=== PATIENT | female | born 1955 | race Caucasian/White ===

== ENCOUNTER 2022-09-12 08:56 | Day surgery (SDC) | payer MEDICARE ==
[2022-09-06 10:32] LABS: Absolute Lymphocytes (CBC) 1.4 K/uL (0.7-4.9); Hematocrit 43.1 % (36.0-45.0); Lymphocytes % 21.9 % (15.3-44.8); MCV 96.6 fL (80-100); MPV 9.4 fL (7.6-11.3); RBC Red Blood Cell Count 4.46 M/uL (3.86-4.86)
[2022-09-06 10:47] LABS: Protime INR 0.98
[2022-09-06 10:48] LABS: Specific Gravity 1.017 (1.005-1.030); Urine Bacteria <20 /HPF (<20); Urine Bilirubin NEGATIVE (Negative); Urine Blood Negative (Negative); Urine Clarity Clear (Clear); Urine Color Light-Yellow (Yellow); Urine Glucose NEGATIVE (Negative); Urine Mucus Slight /HPF (None Seen); Urine Protein NEGATIVE (Negative); Urine RBC None Seen /HPF (None Seen); Urine Urobilinogen Normal (Normal); Urine pH 6.5 (5.0-7.0)
[2022-09-06 10:53] LABS: Potassium 4.1 mEq/L (3.5-5.1)
[2022-09-12] MEDS: CEFAZOLIN SODIUM 2 GM/VIAL ONE ×2 (09:17→11:40)
[2022-09-12] MEDS ORDERED: Ringers Lactate 1,000 ML IV ONE ×3 (09:24→15:03)
[2022-09-12] MEDS ORDERED: SCOPOLAMINE HYDROBROMIDE PATCH TD ONE (09:24)
[2022-09-12] MEDS ORDERED: ROCURONIUM 50 MG/5 ML VIAL IV ONE (10:18)
[2022-09-12] MEDS ORDERED: FENTANYL CITR 250 MCG/5 ML ONE (10:19)
[2022-09-12] MEDS ORDERED: MIDAZOLAM HCL 2 MG/2 ML INJ ONE (10:20)
[2022-09-12] MEDS ORDERED: BUPIVACAINE 0.25% PF 30 ML VIAL ONE (10:54)
[2022-09-12] MEDS ORDERED: CEFAZOLIN SODIUM 1 GM/VIAL ONE ×2 (10:54→14:55)
[2022-09-12] MEDS ORDERED: NA CHLORIDE 0.9% 1,000 ML ONE (10:54)
[2022-09-12] MEDS ORDERED: KETAMINE HCL IN 0.9 % NACL 50 MG/5 ML SYRINGE IV ONE (10:59)
[2022-09-12] MEDS ORDERED: ONDANSETRON 4 MG/2 ML VIAL ONE (11:00)
[2022-09-12] MEDS ORDERED: dexAMETHasone 10 MG/ML VIAL ONE (11:00)
[2022-09-12] MEDS ORDERED: NS 0.9% VIAL 10 ML ONE (12:04)
[2022-09-12] MEDS ORDERED: NS 0.9% VIAL 0 ML ONE (12:04)
[2022-09-12] MEDS: Ringers Lactate 1,000 ML IV ONE ×3 (12:50→14:56)
--- NOTE | 2022-09-12 12:57 | P.OP ---
Preoperative diagnosis: Possible Mucinous Appendiceal Lesion Postoperative diagnosis: Possible Mucinous Appendiceal Lesion Primary procedure: Laparoscopic Appendectomy Anesthesia: GETA Estimated blood loss: <5cc Specimen: Vermiform Appendix Findings: Normal appearing appendix, mucinous lesion adjacent on ovary Complications: None Condition: Good
[2022-09-12] MEDS ORDERED: KETOROLAC 30 MG/ML INJ ONE (14:45)
[2022-09-12] MEDS ORDERED: MORPHINE 10 MG/ML VIAL ONE (15:10)
[2022-09-12] MEDS ORDERED: Mastisol Adhesive Liq ONE (15:24)
[2022-09-12] MEDS ORDERED: HYDROCODONE/APAP 5/325 MG TAB ONE (17:03)
[2022-09-12 18:56] VITALS: BP 115/59; TEMP 98; O2SAT 98
--- NOTE | 2022-09-13 06:54 | OP ---
Date of Procedure: 09/12/2022 Surgeon: Olga Lidia Moe MD Inventory Clerk: Mame Olivo. Preoperative Diagnoses: Incomplete uterovaginal prolapse and complex adnexal mass. Postoperative Diagnoses: Stage III uterovaginal prolapse with defect, posterior enterocel e, and right ovarian cyst. Procedures Performed: 1.Total laparoscopic hysterectomy, bilateral salpingo-oophorectomy. 2.Pelvic washings. 3.Peritoneal implant excision in the posterior cul-de-sac. 4.Bilateral uterosacral ligament suspension colpopexy. 5.Modified Owens's culdoplasty. 6.Cystoscopy. 7.Laparoscopic appendectomy. Specimens: 1.Uterus, bilateral tubes, and ovaries. 2.The ovarian cyst completely intact with the uterus, these were all removed vaginally. 3.Pelvic washings. 4.The posterior cul-de-sac implant that was excised. 5.Appendix. Intraoperative consult with Dr. Amish Cabrera. Please look at his operative note. Estimated Blood Loss: 50. Urine Output: 600. Intake: 2 L. Anesthesia: General endotracheal. Complications: None. Drains: None. Condition: Stable. Findings: 1.Posterior cul-de-sac had an implant that appeared raised and cystic implant was excised completely from the peritoneum and sent for pathology. 2.The cyst was removed intact through the vagina without any rupture. 3.Appendectomy was done due to suspicion of . 4.There were tiny cystic lesions at the left cornual end of the tube. 5.Uterosacral ligament suspension was done with 0 PDS sutures, 1 on each side and culdoplasty was do ne with 2-0 PDS at cul-de-sac. 6.Vaginal cuff closure was with 2-0 V-Loc in 2 layers. [place] was sprayed on the anterior wall disse ction. The bladder was retrograde filled and there was no leak and on cystoscopy, both ureteric orif ices had strong jets of urine. No evidence of any trauma to the bladder. Procedure In Detail: After informed consent was verified, the patient was taken back to the OR. 2 g of Ancef were given. SCDs were placed. Time-out was done. After general anesthesia was given, she was placed in a dorsal lithotomy position. Abdomen, vulva, vagina, and perineum were prepped and dr aped in a sterile fashion with ChloraPrep to the abdomen and Betadine to the bottom. Her daughters were present at the patient's bedside before the patient was brought to the OR, and all the procedures and the options were all reviewed and risks and complications of the procedure and po stop care were all reviewed in detail. The speculum was placed to expose the cervix. The cervix was grasped with 2 Allis clamps and the cer vix was pulled down. Point C was at +2. Medium VCare cup with uterine manipulator was introduced and fixed in place. Waldron was placed into t he bladder. There was strong smelling urine and this was drained and then Waldron catheter was placed and left to drainage. She was then placed in a supine fashion. Infraumbilical incision was made with scalpel using the open laparoscopy technique. Fascia incised t agged with 0 Vicryl sutures. Peritoneum entered sharply. Alissa introduced and site of entry was ch ecked and was unremarkable. Two 5 ports were placed in the right and left lower quadrant under direc t vision. A 10 mm suprapubic port placed. Adhesions of the ascending colon were taken down from the anterior abdominal wall to facilitate a safe port placement as well as safe movement of the instrume nts through this port. The appendix was visualized. Both tubes and pelvic cavity surveyed. No dist ortion in both the ureters and the path. Pictures were taken of the upper upper quadrant, very high. No other abnormalities were seen. The pelvic washings were performed and then the procedure was started. The left round ligament was t aken on top of the LigaSure. Then, the peritoneum opened parallel to the IP ligament to the base of the IP then medially at the broad ligament, opened up and after visualizing the ureter, the IP ligame nt was taken down with the help of the LigaSure and dissection carried through the posterior peritone um to the uterosacral and the remnant of the posterior cup. The broad ligament was completely dissec amish and anterior broad ligament opened up to raise the bladder flap. Vessels taken down with the Lig aSure. On the opposite side, similar dissection was performed to open the broad ligament superior to the round ligament and round ligament taken down posteriorly. The broad ligament incised between th e ureter and the IP. IP was taken down with the help of LigaSure without any problems with the cyst intact. The peritoneum was posteriorly dissected clearly off the sidewall towards the internal os. Once this was reached, anterior plate was then connected to finish the bladder flap and this was caut erized and cut with help of the LigaSure and . After anteriorly, the VCare cup was visualized and the bladder was just inferior to that, a colpotomy was performed in the anterior and posterior aspects of the VCare cup. Then laterally, taken down wi th the help of the LigaSure and a monopolar to complete the colpotomy on both sides. The specimen wa s pulled out through the vagina carefully, additionally holding the cervix and slowly guiding the res t of the specimen through the vaginal canal. Thorough irrigation and suction was performed in the pelvic cavity. Posterior cul-de-sac lesion was identified here and was excised completely. Closure: 2-0 PDS sutures were placed and 2-0 V-Loc continuously running closed the entire cuff until there was excellent support at the closure here. Uterosacral suspension: 3-0 Monocryl suture was used to tag the bowel epiploicae towards the left up per quadrant. The Manuel Neves needle suture was retrieved and held with a hemostat. 3-0 Monocryl stitch was placed on the left uterosacral ligament first, after identifying the ureter a nd staying at least 5 cm proximal to the distal part of the incision. Once this was used as the retr acting suture, I was able to pass 0 PDS suture through the uterosacral from lateral to medial and the n posterior rectovaginal cuff through the anterior fascia. This was then tied down. Similarly on th e opposite side, similar sutures were placed after the 3-0 Vicryl suture for placing tension and then medium to lateral [id number] suture was taken through the uterosacral, which was much more late ral, but clearly on the uterosacral ligament from posterior fascia to the anterior fascia and tied do wn. The culdoplasty was performed above the level of this with the help of 2-0 PDS. Going to the le ft uterosacral, posterior cul-de-sac was encountered and through the right uterosacral ligament, this was tied down to obliterate the posterior cul-de-sac as well as the uterosacral ligaments in the mid dle. After thorough irrigation and suction were performed and the anterior dissection for good hemostasis as well as the lateral lambert. Pictures taken. After thorough irrigation was performed and . Trocars were removed under direct vision after cystoscopy was performed as dictated above. Once the trocars were removed, Marcaine was injected at the beginning and end of the case at the fascia and th e skin, 0.25% total of 60 cc. The umbilical fascia was closed with a 0 Vicryl sutures tied to each other and simple 0 Vicryl suture in the pelvic area. All skin incisions with 5-0 Monocryl in an interrupted and continuous running f ashion. Waldron removed and cystoscopy performed before the ports were pulled out. There was excellent jets of urine from both ureteric orifices and no evidence of injury to the bladder. The vagina was thorough ly irrigated and cleaned out. Waldron was replaced to drain the bladder at the end of the case. Instrument and sponge counts were correct. The patient will follow up with me in 1 week. [facility] with her daughters and they understood. She could go home today. Intraoperative consult with Dr. Cabrera. DASHA/EMANUEL Voice ID: [id number] Report ID: [id number]
--- NOTE | 2022-09-15 22:00 | OP ---
Date of Procedure: 09/12/2022 Surgeon: Luis Miguel Cabrera MD, Brief History Of Present Illness: The patient is a 67-year-old woman known to Dr. Moe who was t aken to the operating room for a surgical procedure, which was due to incomplete uterovaginal prolaps e and complex adnexal mass. She underwent a total laparoscopic hysterectomy, bilateral salpingo-ooph orectomy, pelvic washings, peritoneal implant excision and the posterior cul-de-sac, bilateral urosac ral ligament, suspensory colpopexy, culdoplasty, cystoscopy. During this procedure, I was called by Dr. Moe, as she visualized the appendix in the right lower quadrant, had some abnormal appearanc e to the area consistent and concerning for possible mucinous lesion in the region. As such, I was r equested to remove the appendix, as this may have been the origin of the abnormal mucinous appearance which was in the right lower quadrant as well as on the appendix itself. I was therefore brought in the OR at this point. I discussed the case with Dr. Moe and her concerns and we deemed it appr opriate to remove her appendix at this time. As such, I prepped and scrubbed and entered the case. Preoperative Diagnosis: Possible mucinous appendiceal lesion. Postoperative Diagnosis: Possible mucinous appendiceal lesion. Procedure Performed: Laparoscopic appendectomy. Anesthesia: General endotracheal. Estimated Blood Loss: For my portion of procedure was less than [address] Moe's note for full note regarding her aspect of the operation, which she was the primary surgeon. I was the co-surgeon. Findings: Normal appearing appendix, mucinous lesion adjacent to ovary. Complications: None. The patient tolerated my portion of procedure in good condition. Please see Dr. Moe note for th e remainder of the operation as my portion of the operation was limited to entering the room after th e patient was asleep and exiting prior to the patient having her gynecologic procedure completed. Procedure In Detail: The patient was already prepped and draped in the usual sterile fashion under a dequate anesthesia. I therefore grasped the appendix using ratchet graspers, creating a mesenteric w indow using a [place] retractor. Endo GRAHAM purple load was fired across the base of the appendix varsha r the confluence of the cecum with good apposition and closure of the appendiceal base. I then proce eded to use the LigaSure device to remove the mesoappendix without incident or complication. I then placed the appendix in an EndoCatch bag, removed the umbilical trocar, sent to operative pathologic e xamination. I then copiously irrigated the area and found there to be a small bit of bleeding from t he residual mesoappendix which required an additional application of the LigaSure device at this poin t, with good hemostasis. The EBL was minimal from my portion of the procedure, less than 5 cc. I th en suctioned out, irrigated the area, and inspected the staple line and the mesoappendix at this poin t, and they were found to be in good condition at this point without any need for additional interven tion. I then passed the procedure back over to Dr. Moe. The patient tolerated the my portion o f procedure well without complication. I exited the room. All counts were correct for my portion. Please see Dr. Moe's note for full details. REUL/EMANUEL Voice ID: [id number] Report ID: [id number]
== END 2022-09-12 19:05 | disposition home or self-care (01) ==
LOC: OR 08:56
PROVIDERS: ATTEND Obstetrics & Gynecology
PROC: 0UT24ZZ Resection of Bilateral Ovaries, Percutaneous Endoscopic Approach (ICD-10-PCS; 2022-09-12)
PROC: 0UT74ZZ Resection of Bilateral Fallopian Tubes, Percutaneous Endoscopic Approach (ICD-10-PCS; 2022-09-12)
PROC: 0USG8ZZ Reposition Vagina, Via Natural or Artificial Opening Endoscopic (ICD-10-PCS; 2022-09-12)
PROC: 0DTJ4ZZ Resection of Appendix, Percutaneous Endoscopic Approach (ICD-10-PCS; 2022-09-12)
PROC: 0UB Female Reproductive System, Excision (ICD-10-PCS; 2022-09-12)
PROC: 0UT94ZZ Resection of Uterus, Percutaneous Endoscopic Approach (ICD-10-PCS; principal; 2022-09-12 10:30)
DX: N81.2 Incomplete uterovaginal prolapse (principal); N88.8 Other specified noninflammatory disorders of cervix uteri; N83.8 Other noninflammatory disorders of ovary, fallopian tube and broad ligament; K38.8 Other specified diseases of appendix
CPT/HCPCS: 58571; 57283; 44970; 85025; 81001; 80048; 36415; 86900; 88108; 86850; 85610; 86901; 88302; 88305; 88307; 85730; 57135; A4216; J2250; J3010; J1100; J2405; J7120 ×4; J7030; J0690; 88304